=== PATIENT | female | born 1995 | race Caucasian/White ===

== ENCOUNTER 2017-09-13 08:12 | Observation (INO) ==
[2017-09-13 09:33] LABS: Bilirubin,Urine Negative (Negative); Blood,Urine Negative (Negative); Clarity,Urine Cloudy (Clear); Color,Urine Yellow (Yellow); Glucose,Urine (UA) Normal (Normal); Ketones,Urine Negative (Negative); Leukocyte Esterase,Urine Trace (Negative); Nitrite,Urine Negative (Negative); Protein,Urine Negative (Neg-Trace); Specific Gravity,Urine 1.025 (1.010-1.025); Urobilinogen,Urine Normal (Normal)
[2017-09-13 09:35] LABS: Bacteria,Urine Few per hpf (None-Few); Hyaline Casts,Urine None Seen per lpf (None-Few); Squamous Epithelial Cell,Urine Many per lpf (None-Few)
[2017-09-13 09:44] LABS: Amphetamine Screen,Urine Negative ng/mL (Cutoff=1000); Barbiturate Screen,Urine Negative ng/mL (Cutoff=200); Benzodiazepines Screen,Urine Negative ng/mL (Cutoff=200); Cannabinoid Screen,Urine Negative ng/mL (Cutoff = 50); Cocaine Screen,Urine Negative ng/mL (Cutoff= 300); Opiate Screen,Urine Negative ng/mL (Cutoff=300); Phencyclidine Screen,Urine Negative ng/mL (Cutoff=25)
--- NOTE | 2017-09-13 10:19 | OB/GYN Progress Note ---
Date of Encounter: 09/13/17 Time of Encounter: 10:17 - Assessment and Plan (1) 28 weeks gestation of Current Visit: Yes Status: Acute (2) Vaginal discharge during in third trimester Current Visit: Yes Status: Acute Nitrazine negative Pt reports no changes in pressure or discharge since arrival labor precautions given OK to discharge back to office for testing (3) NST (non-stress test) reactive on surveillance Current Visit: Yes Status: Acute Subjective - Subjective Principal diagnosis: Vaginal discharge Interval history: Pt presents from office with c/o pressure and vaginal leaking. She states this is not a new problem but has gotten worse recently. Endorses good FM and denies ctx, vaginal bleeding, REECE, blurry vision, RUQ pain. Objective - Vital Signs Vital Signs: Intake and Output 09/12/17 09/13/17 09/13/17 23:59 07:59 15:59 Other: Weight 133.81 kg Patient Weight 09/13/17 23:59 Weight 133.81 kg - Exam FHR: auscultation normal Auscultation: bilateral: normal Abdomen: Present: normal appearance, soft, gravid Uterus: Present: normal, firm - Labs Labs: Abnormal lab results Urine Clarity Cloudy (Clear) A 09/13/17 08:40 Ur Leukocyte Esterase Trace (Negative) H 09/13/17 08:40 Urine Microscopic RBC 3-5 per hpf (0-3) H 09/13/17 08:40 Urine Microscopic WBC 5-15 per hpf (0-3) H 09/13/17 08:40 Ur Squamous Epith Cells Many per lpf (None-Few) H 09/13/17 08:40
== END 2017-09-13 10:30 | disposition home or self-care (01) ==
LOC: 1NENULAB
PROVIDERS: ADMIT Student in an Organized Health Care Education/Training Program; ATTEND Student in an Organized Health Care Education/Training Program

== ENCOUNTER 2017-09-18 19:16 | Observation (INO) ==
--- NOTE | 2017-09-18 19:36 | OB/GYN Progress Note ---
Date of Encounter: 09/18/17 Time of Encounter: 19:30 - Assessment and Plan (1) 28 weeks gestation of Current Visit: Yes Status: Acute (2) Abdominal pain during in third trimester Current Visit: Yes Status: Acute Admit for observation UA negative GI cocktail for chest discomfort FHT reassuring (3) History of atrial fibrillation Current Visit: Yes Status: Acute Patient reports history of Matt goyal currently not following-up with cardiology Obtain 12 lead EKG Subjective - Subjective Principal diagnosis: epigastric pain Interval history: 22F at 28 weeks and 6 days presents to labor and delivery with complaints of worsening lower abdominal pain for 1 week. PMHx of Matt goyal, not on any medications, and unspecified brain lesion. She describes the abdominal pain as pressure-like, worse with exertion. She experienced two episodes of lower abdominal pain with diaphoresis and shortness of breath today in the morning and at 1500 that lasted 2 minutes each time. The pain did not radiate. Both episodes self-resolved. She reports good movement, denies vaginal bleeding , contractions, or leakage of fluid. She receives care with Dr. Sheldon, last visit 09/13/17. She admits to headaches, vision spotting. She denies dysuria, hematuria, but reports cloudy urine. Ambulating without difficulty, denies lower extremity pain or swelling. has been complicated by morbid obesity. Blood type: B+ Hepatitis B: NR HIV: NR T. Pallidum Ab: negative Rubella IgG: positive Varicella IgG: positive Antepartum ROS: movement normal, no loss of fluid, no vaginal bleeding, no contractions Objective - Exam FHR: auscultation normal, category 1 Auscultation: bilateral: normal Abdomen: Present: normal appearance, soft, gravid Uterus: Present: normal, firm
[2017-09-18 19:43] LABS: Bilirubin,Urine Negative (Negative); Blood,Urine Negative (Negative); Clarity,Urine Cloudy (Clear); Color,Urine Yellow (Yellow); Glucose,Urine (UA) Normal (Normal); Ketones,Urine Negative (Negative); Leukocyte Esterase,Urine Small (Negative); Nitrite,Urine Negative (Negative); Protein,Urine Negative (Neg-Trace); Specific Gravity,Urine 1.024 (1.010-1.025); Urobilinogen,Urine Normal (Normal)
[2017-09-18 19:47] LABS: Bacteria,Urine None Seen per hpf (None-Few); Hyaline Casts,Urine None Seen per lpf (None-Few); RBC,Urine 0-3 per hpf (0-3); Squamous Epithelial Cell,Urine Many per lpf (None-Few)
[2017-09-18 19:50] LABS: Amphetamine Screen,Urine Negative ng/mL (Cutoff=1000); Barbiturate Screen,Urine Negative ng/mL (Cutoff=200); Benzodiazepines Screen,Urine Negative ng/mL (Cutoff=200); Cannabinoid Screen,Urine Negative ng/mL (Cutoff = 50); Cocaine Screen,Urine Negative ng/mL (Cutoff= 300); Opiate Screen,Urine Negative ng/mL (Cutoff=300); Phencyclidine Screen,Urine Negative ng/mL (Cutoff=25)
[2017-09-18] MEDS ORDERED: GI Cocktail 40 ML EACH PO ONE (19:57)
--- NOTE | 2017-09-25 17:03 | Electrocardiograph Report ---
[address] [place], [place] [address] Test Date: 2017-09-18 Pat Name: Pablo Lowe Department: 102 Room: 06 Gender: F Acquisition Lead: Rojas : 1995 Requested By: Alf Delacruz Order Number: [id number] Reading MD: Brittaney Kasper Measurements Intervals Cora Rate: 85 P: 154 WA: 119 QRS: 166 QRSD: 86 T: 178 QT: 344 QTc: 386 Interpretive Statements POSSIBLE ECTOPIC ATRIAL RHYTHM WITH SHORT WA INTERVAL LIMB LEAD REVERSAL Electronically Signed On 09-25-2017 17:01:31 EDT by Brittaney Kasper
== END 2017-09-18 21:35 | disposition home or self-care (01) ==
LOC: 1NENULAB
PROVIDERS: ADMIT Obstetrics & Gynecology; ATTEND Obstetrics & Gynecology

== ENCOUNTER 2017-10-16 12:46 | Observation (INO) ==
[2017-10-16 13:36] VITALS: BP 121/71
[2017-10-16 14:16] LABS: Bilirubin,Urine Negative (Negative); Blood,Urine Negative (Negative); Clarity,Urine Cloudy (Clear); Color,Urine Yellow (Yellow); Glucose,Urine (UA) Normal (Normal); Ketones,Urine Trace mg/dL (Negative); Leukocyte Esterase,Urine Moderate (Negative); Nitrite,Urine Negative (Negative); Protein,Urine Negative (Neg-Trace); Specific Gravity,Urine 1.018 (1.010-1.025); Urobilinogen,Urine Normal (Normal)
[2017-10-16 14:21] LABS: Bacteria,Urine Moderate per hpf (None-Few); Hyaline Casts,Urine Few per lpf (None-Few); Squamous Epithelial Cell,Urine Many per lpf (None-Few); WBC,Urine 15-30 per hpf (0-3)
[2017-10-16 14:50] LABS: RBC,Urine 0-3 per hpf (0-3)
--- NOTE | 2017-10-16 15:00 | Discharge Summary ---
Date of Encounter: 10/16/17 Time of Encounter: 14:59 - Discharge Diagnosis (1) 33 weeks gestation of Priority: Primary Status: Acute Comments: Patient admitted for labor evaluation. Patient declines SVE (2) UTI (urinary tract infection) in in third trimester Priority: Secondary Status: Acute Comments: RX for Macrobid encourage PO hydration - Discharge Medications Prescriptions: Nitrofurantoin (BID) [Macrobid] 100 mg PO BID 7 Days #14 capsule Home Medications: Albuterol Sulfate [Ventolin Hfa] 1 - 2 puff IH Q4H PRN #1 hfa.aer.ad 08/01/15 [ Rx] Montelukast [Singulair] 5 mg PO DAILY 05/03/16 [History] Ferrous Sulfate [Iron] 325 mg PO BID 08/22/17 [History] Ondansetron HCl [Zofran] 4 mg PO PRN PRN 08/22/17 [History] Pnv95/Ferrous Fumarate/FA [ Vitamin Tablet] 1 tab PO DAILY 08/22/17 [ History] Nitrofurantoin (BID) [Macrobid] 100 mg PO BID 7 Days #14 capsule 10/16/17 [Rx] Allergies/Adverse Reactions: 3 Allergy/AdvReac Type Severity Reaction Status Date / Time Amoxicillin [From Augmentin] Allergy See Verified 09/18/17 21:56 Comments clavulanic acid Allergy See Verified 09/18/17 21:56 [From Augmentin] Comments latex Allergy See Verified 09/18/17 21:56 Comments shellfish derived Allergy Swelling Verified 09/18/17 21:56 of Lip/Tongue/Throat NSAIDS (Non-Steroidal AdvReac Nausea Verified 09/18/17 21:56 Anti-Inflamma Data Procedures and tests throughout hospitalization: Laboratory Tests 10/16/17 13:30 Urine Color Yellow Urine Clarity Cloudy A Urine pH 7.0 Ur Specific Danielson 1.018 Urine Protein Negative Urine Glucose (UA) Normal Urine Ketones Trace H Urine Blood Negative Urine Nitrite Negative Urine Bilirubin Negative Urine Urobilinogen Normal Ur Leukocyte Esterase Moderate H Urine Microscopic RBC 0-3 Urine Microscopic WBC 15-30 H Ur Squamous Epith Cells Many H Urine Bacteria Moderate H Hyaline Casts Few Ur Culture Indicated? NO. A Labs on day of discharge: Labs from last 24 hours 10/16/17 13:30 Urine Color Yellow Urine Clarity Cloudy A Urine pH 7.0 Ur Specific Danielson 1.018 Urine Protein Negative Urine Glucose (UA) Normal Urine Ketones Trace H Urine Blood Negative Urine Nitrite Negative Urine Bilirubin Negative Urine Urobilinogen Normal Ur Leukocyte Esterase Moderate H Urine Microscopic RBC 0-3 Urine Microscopic WBC 15-30 H Ur Squamous Epith Cells Many H Urine Bacteria Moderate H Hyaline Casts Few Ur Culture Indicated? NO. A Date of admission: 10/16/17 12:46 Primary care physician: PCP NONE Discharging clinician: Heena Walsh Anticipated date of discharge: 10/16/17 - Patient Status Disposition: Home, Self-Care Condition: Good Functional capacity at discharge: independent ambulation - Discharge Instructions Follow Up With: NONE,PCP [Primary Care Provider] - Jesse Sheldon MD [Partnered Physician] - - Diet and Activity Activity: increase activity as tolerated Diet: regular diet Hospital Course ENVIRONMENTAL SERVICES ATTENDANT Hospital course: Patient is a 22 y/o at 33 weeks gestation presents with lower abdominal pain. Patient reports pain has gotten worse over the past week. Patient denies LOF or VB. Patient is unsure if pain she is feeling is contractions. Patient declines SVE. FHR 130 bpm moderate variability +15x15 accels no decels noted. No contractions. Time Attestation: Total time spent providing and/or coordinating discharge services: Time Spent: Less than 30 minutes Exam - Constitutional Vitals: Temp Pulse Resp BP 98.7 F 97 14 121/71 10/16/17 13:30 10/16/17 13:30 10/16/17 13:30 10/16/17 13:30 General appearance IM: A&O X 3, pleasant, answers questions appropriately - Respiratory Respiratory exam: Present: CTAB - Cardiovascular Cardiovascular exam IM: Present: RRR, +S1, +S2 - Extremities Exam Extremities exam IM: Present: full ROM, normal capillary refill - Neurological Exam Neurological exam: alert, oriented X3, reflexes normal - VTE Reasons for not Prescribing Prophylaxis: Treatment not Indicated - Low risk for VTE
[2017-10-16 16:06] LABS: Amphetamine Screen,Urine Negative ng/mL (Cutoff=1000); Barbiturate Screen,Urine Negative ng/mL (Cutoff=200); Benzodiazepines Screen,Urine Negative ng/mL (Cutoff=200); Cannabinoid Screen,Urine Negative ng/mL (Cutoff = 50); Cocaine Screen,Urine Negative ng/mL (Cutoff= 300); Opiate Screen,Urine Negative ng/mL (Cutoff=300); Phencyclidine Screen,Urine Negative ng/mL (Cutoff=25)
== END 2017-10-16 15:12 | disposition home or self-care (01) ==
LOC: 1NENULAB
PROVIDERS: ADMIT Advanced Practice Midwife; ATTEND Advanced Practice Midwife

== ENCOUNTER 2017-10-18 09:24 | Observation (INO) ==
[2017-10-18 11:32] LABS: Bilirubin,Urine Negative (Negative); Blood,Urine Negative (Negative); Clarity,Urine Clear (Clear); Color,Urine Yellow (Yellow); Glucose,Urine (UA) Normal (Normal); Ketones,Urine Negative (Negative); Leukocyte Esterase,Urine Negative (Negative); Nitrite,Urine Negative (Negative); PH,Urine 6.5 pH Units (5.0-8.0); Protein,Urine Negative (Neg-Trace); Specific Gravity,Urine 1.016 (1.010-1.025); Urobilinogen,Urine Normal (Normal)
[2017-10-18] MEDS ORDERED: Ringers Solution, Lactated 1,000 ML IVC ONE (11:48)
[2017-10-18] MEDS ORDERED: Terbutaline 1 MG/ML VIAL SQ ONE (11:58)
--- NOTE | 2017-10-18 12:08 | OB/GYN Progress Note ---
Date of Encounter: 10/18/17 Time of Encounter: 12:05 - Assessment and Plan (1) 33 weeks gestation of Current Visit: Yes Status: Acute (2) Abdominal pain during in third trimester Current Visit: Yes Status: Acute Terbutaline administered No cervical change Follow-up as scheduled Okay to discharge home (3) NST (non-stress test) reactive on surveillance Current Visit: Yes Status: Acute Subjective - Subjective Interval history: Patient presents with complaints of contractions. movement normal, no loss of fluid no vaginal bleeding. Antepartum ROS: movement normal, contractions, no loss of fluid, no vaginal bleeding Objective - Exam FHR: category 1 FHR comments: Baseline 130 Moderate variability Accelerations present 15x15 No decelerations FHR Category I Auscultation: bilateral: normal Abdomen: Present: normal appearance, soft, gravid Uterus: Present: normal, firm Cervical dilation: 0 Cervix effacement: 0 station: -3
[2017-10-18 12:45] LABS: Amphetamine Screen,Urine Negative ng/mL (Cutoff=1000); Barbiturate Screen,Urine Negative ng/mL (Cutoff=200); Benzodiazepines Screen,Urine Negative ng/mL (Cutoff=200); Cannabinoid Screen,Urine Negative ng/mL (Cutoff = 50); Cocaine Screen,Urine Negative ng/mL (Cutoff= 300); Opiate Screen,Urine Negative ng/mL (Cutoff=300); Phencyclidine Screen,Urine Negative ng/mL (Cutoff=25)
== END 2017-10-18 13:30 | disposition home or self-care (01) ==
LOC: 1NENULAB
PROVIDERS: ADMIT Student in an Organized Health Care Education/Training Program; ATTEND Student in an Organized Health Care Education/Training Program

== ENCOUNTER 2017-11-10 12:37 | Observation (INO) ==
[2017-11-10 13:48] LABS: Basophils % 0.3 %; Eosinophils # 0.2 K/mcL (0.0-0.6); Eosinophils % 1.1 %; Hematocrit 31.2 % (35.3-44.9); Hemoglobin 10.5 g/dL (11.5-15.4); Immature Granulocytes % 0.6 % (0-4); Lymphocytes % 12.8 %; Mean Corpuscular HGB Conc 33.7 g/dL (31.6-35.5); Mean Corpuscular Hemoglobin 29.8 pg (28.0-33.3); Mean Corpuscular Volume 88.6 fL (83.0-100.0); Mean Platelet Volume 12.8 fL (9.4-12.4); Monocytes # 0.8 K/mcL (0.0-1.3); Monocytes % 5.7 %; Neutrophils # 10.8 K/mcL (1.6-8.9); Platelet Count 175 K/mcL (140-400); Red Blood Count 3.52 M/mcL (3.82-4.97); Red Cell Distribution Width 12.2 % (11.5-14.5); Segmented Neutrophils % 79.5 %
[2017-11-10 14:08] LABS: Alanine Aminotransferase 15 Units/L (7-52); Aspartate Amino Transferase 16 Units/L (13-39); BUN/Creatinine Ratio 13 (6-26); Blood Urea Nitrogen 7 mg/dL (6-20); Lactate Dehydrogenase 138 Units/L (140-271); Uric Acid 4.2 mg/dL (2.3-7.6); eGFR For African Americans > 60 (> 60); eGFR For Non-African Americans > 60 (> 60)
[2017-11-10 14:12] LABS: Bilirubin,Urine Negative (Negative); Blood,Urine Negative (Negative); Clarity,Urine Cloudy (Clear); Color,Urine Yellow (Yellow); Glucose,Urine (UA) Normal (Normal); Ketones,Urine Negative (Negative); Leukocyte Esterase,Urine Negative (Negative); Nitrite,Urine Negative (Negative); PH,Urine 6.5 pH Units (5.0-8.0); Protein,Urine Negative (Neg-Trace); Specific Gravity,Urine 1.017 (1.010-1.025); Urobilinogen,Urine Normal (Normal)
[2017-11-10 14:15] LABS: Bacteria,Urine Few per hpf (None-Few); Hyaline Casts,Urine None Seen per lpf (None-Few); Squamous Epithelial Cell,Urine Many per lpf (None-Few)
[2017-11-10 14:15] LABS: Creatinine,Urine 114 mg/dL; Protein/Creatinine Ratio,Urine 0.12 mg/mg (0.00-0.20)
[2017-11-10 14:33] LABS: Lymphocytes # 1.7 K/mcL (0.6-4.6)
--- NOTE | 2017-11-10 14:42 | OB/GYN Progress Note ---
Date of Encounter: 11/10/17 Time of Encounter: 14:37 - Assessment and Plan (1) 36 weeks gestation of Current Visit: Yes Status: Acute 36 weeks 5 days late IUP Reactive NST Normal PIH labs Normal UA Discharge home with labor precautions and kick counts. Patient instructed to go to ER if REECE increases Keep appointment as previously scheduled SaturdayNovember [address] Sheldon and prn (2) Headache Current Visit: Yes Status: Acute Qualifiers: Headache type: unspecified Headache chronicity pattern: chronic headache Intractability: not intractable Qualified Code(s): R51 - Headache Subjective - Subjective Interval history: at 36 weeks and 5 days presents to triage with reports contractions, REECE , "seeing spots" and heartburn. Denies vaginal bleeding and leaking fluid. Denies dysuria. States baby moving well. Patient has history of chronic Atrial fibrillation, brain lesions and headaches. Objective - Vital Signs Vital Signs: Intake and Output 11/09/17 11/10/17 11/10/17 23:59 07:59 15:59 Other: Weight 136.5 kg Patient Weight 11/10/17 23:59 Weight 136.5 kg - Exam FHR: category 1 FHR comments: FHR 140 Auscultation: bilateral: normal Abdomen: Present: soft, gravid. Absent: tenderness Uterus: Present: normal. Absent: tenderness Cervical dilation: closed Cervix effacement: thick station: High Comments: VE per RN - Labs Labs: Abnormal lab results WBC 13.6 K/mcL (4.3-11.1) H 11/10/17 12:46 RBC 3.52 M/mcL (3.82-4.97) L 11/10/17 12:46 Hgb 10.5 g/dL (11.5-15.4) L 11/10/17 12:46 Hct 31.2 % (35.3-44.9) L 11/10/17 12:46 MPV 12.8 fL (9.4-12.4) H 11/10/17 12:46 Neutrophils # 10.8 K/mcL (1.6-8.9) H 11/10/17 12:46 Creatinine 0.54 mg/dL (0.60-1.20) L 11/10/17 12:46 Lactate Dehydrogenase 138 Units/L (140-271) L 11/10/17 12:46 Urine Clarity Cloudy (Clear) A 11/10/17 13:55 Urine Microscopic RBC 3-5 per hpf (0-3) H 11/10/17 13:55 Urine Microscopic WBC 5-15 per hpf (0-3) H 11/10/17 13:55 Ur Squamous Epith Cells Many per lpf (None-Few) H 11/10/17 13:55
[2017-11-10 16:18] LABS: Amphetamine Screen,Urine Negative ng/mL (Cutoff=1000); Barbiturate Screen,Urine Negative ng/mL (Cutoff=200); Benzodiazepines Screen,Urine Negative ng/mL (Cutoff=200); Cannabinoid Screen,Urine Negative ng/mL (Cutoff = 50); Cocaine Screen,Urine Negative ng/mL (Cutoff= 300); Opiate Screen,Urine Negative ng/mL (Cutoff=300); Phencyclidine Screen,Urine Negative ng/mL (Cutoff=25)
== END 2017-11-10 14:30 | disposition home or self-care (01) ==
LOC: 1NENULAB
PROVIDERS: ADMIT Advanced Practice Midwife; ATTEND Advanced Practice Midwife

== ENCOUNTER 2017-11-15 11:26 | Inpatient (IN) ==
[2017-11-15] MEDS ORDERED: Metoclopramide 10 MG/2 ML VIAL IVP PRN (11:39)
[2017-11-15] MEDS ORDERED: Ondansetron 4 MG/2 ML VIAL IVP PRN (11:39)
[2017-11-15] MEDS ORDERED: *HR* Nalbuphine 10 MG/ML AMPUL IVP PRN (11:39)
[2017-11-15] MEDS ORDERED: Famotidine 20 MG/2 ML VIAL IVP PRN (11:39)
[2017-11-15] MEDS ORDERED: Lidocaine 1% 20 ML MDV INFILT PRN (11:39)
[2017-11-15] MEDS ORDERED: Naloxone 0.4 MG/ML INJ IVP PRN (11:39)
[2017-11-15] MEDS ORDERED: Ringers Solution, Lactated 1,000 ML IVC SCH (11:45)
[2017-11-15 12:30] LABS: Basophils % 0.2 %; Eosinophils # 0.1 K/mcL (0.0-0.6); Eosinophils % 0.9 %; Hematocrit 32.4 % (35.3-44.9); Immature Granulocytes % 0.5 % (0-4); Lymphocytes # 1.8 K/mcL (0.6-4.6); Lymphocytes % 15.1 %; Mean Corpuscular Hemoglobin 30.1 pg (28.0-33.3); Mean Corpuscular Volume 88.5 fL (83.0-100.0); Monocytes # 0.7 K/mcL (0.0-1.3); Monocytes % 6.1 %; Neutrophils # 9.1 K/mcL (1.6-8.9); Platelet Count 197 K/mcL (140-400); Red Blood Count 3.66 M/mcL (3.82-4.97); Red Cell Distribution Width 12.5 % (11.5-14.5); Segmented Neutrophils % 77.2 %
[2017-11-15 12:52] LABS: Alanine Aminotransferase 16 Units/L (7-52); Aspartate Amino Transferase 17 Units/L (13-39); BUN/Creatinine Ratio 13 (6-26); Blood Urea Nitrogen 7 mg/dL (6-20); Lactate Dehydrogenase 132 Units/L (140-271); Uric Acid 4.3 mg/dL (2.3-7.6); eGFR For African Americans > 60 (> 60); eGFR For Non-African Americans > 60 (> 60)
[2017-11-15 13:17] LABS: Amphetamine Screen,Urine Negative ng/mL (Cutoff=1000); Barbiturate Screen,Urine Negative ng/mL (Cutoff=200); Benzodiazepines Screen,Urine Negative ng/mL (Cutoff=200); Cannabinoid Screen,Urine Negative ng/mL (Cutoff = 50); Cocaine Screen,Urine Negative ng/mL (Cutoff= 300); Opiate Screen,Urine Negative ng/mL (Cutoff=300); Phencyclidine Screen,Urine Negative ng/mL (Cutoff=25)
[2017-11-15 13:30] LABS: Protein/Creatinine Ratio,Urine 0.11 mg/mg (0.00-0.20)
--- NOTE | 2017-12-04 16:42 | OB/GYN Progress Note ---
Date of Encounter: 11/15/17 Time of Encounter: 11:55 - Assessment and Plan (1) 37 weeks gestation of Status: Mary Shah is a 22 y/o @ 37 +1 weeks who presented to L&D initially for IOL for GHTN but had to be transfered to [facility] because she has a history of A-fib and we do not have telemetry on L&D. Objective - Labs Labs: Abnormal lab results WBC 11.8 K/mcL (4.3-11.1) H 11/15/17 11:40 RBC 3.66 M/mcL (3.82-4.97) L 11/15/17 11:40 Hgb 11.0 g/dL (11.5-15.4) L 11/15/17 11:40 Hct 32.4 % (35.3-44.9) L 11/15/17 11:40 Neutrophils # 9.1 K/mcL (1.6-8.9) H 11/15/17 11:40 Creatinine 0.54 mg/dL (0.60-1.20) L 11/15/17 11:44 Lactate Dehydrogenase 132 Units/L (140-271) L 11/15/17 11:44 Urine Total Protein 17 mg/dL (1-14) H 11/15/17 12:55
== END 2017-11-15 14:10 | disposition short-term general hospital (02) | DRG 566 ==
LOC: 1NENULAB 11:26
PROVIDERS: ADMIT Student in an Organized Health Care Education/Training Program; ATTEND Student in an Organized Health Care Education/Training Program

== ENCOUNTER → 2017-11-17 17:45 | Observation (INO) ==
[2017-11-17 11:59] LABS: Basophils % 0.2 %; Eosinophils # 0.1 K/mcL (0.0-0.6); Eosinophils % 1.1 %; Hematocrit 32.5 % (35.3-44.9); Hemoglobin 10.9 g/dL (11.5-15.4); Immature Granulocytes % 0.4 % (0-4); Lymphocytes # 1.8 K/mcL (0.6-4.6); Lymphocytes % 15.5 %; Mean Corpuscular HGB Conc 33.5 g/dL (31.6-35.5); Mean Corpuscular Hemoglobin 30.2 pg (28.0-33.3); Mean Platelet Volume 12.1 fL (9.4-12.4); Monocytes # 0.8 K/mcL (0.0-1.3); Neutrophils # 8.7 K/mcL (1.6-8.9); Platelet Count 192 K/mcL (140-400); Red Blood Count 3.61 M/mcL (3.82-4.97); Red Cell Distribution Width 12.5 % (11.5-14.5); Segmented Neutrophils % 75.8 %
--- NOTE | 2017-11-17 12:03 | OB/GYN Progress Note ---
Date of Encounter: 11/17/17 Time of Encounter: 12:02 - Assessment and Plan (1) 37 weeks gestation of Current Visit: Yes Status: Acute BP monitoring while in L&D Urine studies (2) Headache Current Visit: Yes Status: Acute Qualifiers: Headache type: unspecified Headache chronicity pattern: acute headache Intractability: not intractable Qualified Code(s): R51 - Headache Subjective - Subjective Principal diagnosis: Dizziness in Interval history: Ms. Lowe is a 22-year-old female who presents today with complaint of elevated blood pressures from home. She reports her home cuff today blood pressure of 130/100 twice in a row. She states she also had a slight headache felt dizzy and had some tunnel vision. She reports she has been seeming water adequately. She endorses good movement and denies contractions, leakage of fluid, vaginal bleeding. Antepartum ROS: new complaints, movement normal, no loss of fluid, no vaginal bleeding, no contractions Objective - Exam FHR: category 1 Auscultation: bilateral: normal Abdomen: Present: normal appearance, soft, gravid Uterus: Present: normal, firm - Labs Labs: Abnormal lab results WBC 11.5 K/mcL (4.3-11.1) H 11/17/17 11:49 RBC 3.61 M/mcL (3.82-4.97) L 11/17/17 11:49 Hgb 10.9 g/dL (11.5-15.4) L 11/17/17 11:49 Hct 32.5 % (35.3-44.9) L 11/17/17 11:49
[2017-11-17 12:10] LABS: Protein/Creatinine Ratio,Urine 0.18 mg/mg (0.00-0.20)
--- NOTE | 2017-11-17 12:50 | OB/GYN History & Physical ---
Date of Encounter: 11/17/17 Time of Encounter: 12:47 Assessment and Plan (1) 37 weeks gestation of Current visit: Yes Status: Acute 22 y/o @ 37 weeks GHTN, h/o afib in 2011 Plan: The last time I saw the patient, she said that she has been cleared by Cardiology to deliver at [facility] but I have not yet received official report. Nursing Staff working on getting records. We will start with Cervidil after we have obtained records to determine if she will deliver here. Monitor BP and treat accordingly with Mg if severe range. History of Present Illness HPI: Ms. Lowe is a 22 year old female @ 37+4 weeks who presents to L&D with elevated BP and dizziness. She had mild range elevation this past Saturday with neg tox eval. She was sent home with BP monitoring instructions. She says that she had mild range pressures at home with her routine checks. She arrived L&D with at least one severe range pressure with evantual normalization. Based on the prior high BP, she qualifies for Gestational HTN and delivery. Dr Pineda agrees as second Provider. No LOF, VB or ctxs, feels good FM. Past Med Surg Social Fam HX - Past Medical History Medical history: asthma, atrial fibrillation, GERD, migraine, syncope, other Psychiatric history: no psych history - Past Surgical History Surgical History: cholecystectomy, orthopedic, other - Social History Smoking Status: Former smoker Smokeless Tobacco Status: No Alcohol use: none Drug use: none - Family History Mother Name: Iva Family Member Ethnicity: Non- Living Status: Still Living Hx Family Cardiac Disorders: Yes (htn) Hx Family Respiratory Disorders: Yes (Ashthma) Hx Family Cancer: No Hx Family GI Disorders: No Hx Family Endocrine Disorder: No Hx Family Neuromuscular Disorders: No Hx Family Neurologic Disorders: No Hx Family HEENT Disorders: No Hx Family Autoimmune Disorders: No Obstetrical History - Pregnancies : 1 Medications and Allergies Albuterol Sulfate [Ventolin Hfa] 1 - 2 puff IH Q4H PRN #1 hfa.aer.ad 08/01/15 [ Rx] Ondansetron HCl [Zofran] 4 mg PO PRN PRN 08/22/17 [History] Pnv95/Ferrous Fumarate/FA [ Vitamin Tablet] 1 tab PO DAILY 08/22/17 [ History] 3 Allergy/AdvReac Type Severity Reaction Status Date / Time Amoxicillin [From Augmentin] Allergy See Verified 09/18/17 21:56 Comments clavulanic acid Allergy See Verified 09/18/17 21:56 [From Augmentin] Comments latex Allergy See Verified 09/18/17 21:56 Comments shellfish derived Allergy Swelling Verified 09/18/17 21:56 of Lip/Tongue/Throat NSAIDS (Non-Steroidal AdvReac Nausea Verified 09/18/17 21:56 Anti-Inflamma Review of System OB All systems PM: reviewed and no additional remarkable complaints except as stated Exam - Constitutional Constitutional: no acute distress - HEENT HEENT: PERRL - Neck Neck exam: full ROM - Lungs Respiratory exam: CTAB - Cardiovascular Cardiovascular exam: RRR - Abdomen Abdomen: Present: gravid - Extremities Extremities exam: normal inspection - Cervix Dilation: 0 Results Result Diagrams: 11/17/17 11:49 Abnormal lab results WBC 11.5 K/mcL (4.3-11.1) H 11/17/17 11:49 RBC 3.61 M/mcL (3.82-4.97) L 11/17/17 11:49 Hgb 10.9 g/dL (11.5-15.4) L 11/17/17 11:49 Hct 32.5 % (35.3-44.9) L 11/17/17 11:49 All other labs normal. - VTE Reasons for not Prescribing Prophylaxis: Treatment not Indicated - Low risk for VTE
[2017-11-17 13:28] LABS: Amphetamine Screen,Urine Negative ng/mL (Cutoff=1000); Barbiturate Screen,Urine Negative ng/mL (Cutoff=200); Benzodiazepines Screen,Urine Negative ng/mL (Cutoff=200); Cannabinoid Screen,Urine Negative ng/mL (Cutoff = 50); Cocaine Screen,Urine Negative ng/mL (Cutoff= 300); Opiate Screen,Urine Negative ng/mL (Cutoff=300); Phencyclidine Screen,Urine Negative ng/mL (Cutoff=25)
[2017-11-17 14:35] LABS: Alanine Aminotransferase 22 Units/L (7-52); Aspartate Amino Transferase 20 Units/L (13-39); BUN/Creatinine Ratio 13 (6-26); Blood Urea Nitrogen 7 mg/dL (6-20); Lactate Dehydrogenase 121 Units/L (140-271); Uric Acid 3.9 mg/dL (2.3-7.6); eGFR For African Americans > 60 (> 60); eGFR For Non-African Americans > 60 (> 60)
[~2017-11-17 17:45] MED LIST: Acetaminophen 325 MG TABLET PO ONE; Famotidine 20 MG/2 ML VIAL IVP PRN; Naloxone 0.4 MG/ML INJ IVP PRN; Ringers Solution, Lactated 1,000 ML IVC ONE; Ringers Solution, Lactated 1,000 ML IVC SCH; Ringers Solution, Lactated 1,000 ML ONE
== END | disposition other institution (70) ==
LOC: 1NENULAB
PROVIDERS: ADMIT Student in an Organized Health Care Education/Training Program; ATTEND Student in an Organized Health Care Education/Training Program

== ENCOUNTER 2022-02-21 16:34 | Observation (INO) ==
[2022-02-21 18:29] LABS: Basophils % 0.2 %; Eosinophils # 0.1 K/mcL (0.0-0.6); Eosinophils % 0.9 %; Hematocrit 38.3 % (35.3-44.9); Hemoglobin 12.4 g/dL (11.5-15.4); Immature Granulocytes % 0.5 % (0-4); Lymphocytes # 1.1 K/mcL (0.6-4.6); Lymphocytes % 13.4 %; Mean Corpuscular HGB Conc 32.4 g/dL (31.6-35.5); Mean Corpuscular Hemoglobin 30.1 pg (28.0-33.3); Mean Platelet Volume 11.5 fL (9.4-12.4); Monocytes # 0.8 K/mcL (0.0-1.3); Monocytes % 10.2 %; Neutrophils # 6.1 K/mcL (1.6-8.9); Platelet Count 147 K/mcL (140-400); Red Blood Count 4.12 M/mcL (3.82-4.97); Red Cell Distribution Width 13.1 % (11.5-14.5); Segmented Neutrophils % 74.8 %; White Blood Count 8.2 K/mcL (4.3-11.1)
[2022-02-21 18:41] LABS: BUN/Creatinine Ratio 10 (6-26); Blood Urea Nitrogen 5 mg/dL (6-20); Calcium 8.8 mg/dL (8.6-10.3); Carbon Dioxide 21 mEq/L (23-29); Chloride 105 mEq/L (98-107); Glucose 73 mg/dL (70-105); Osmolality,Calculated 276 (280-300); Potassium 3.7 mEq/L (3.5-5.1); Sodium 135 mEq/L (136-145); Troponin I < 0.03 ng/mL (< 0.04)
[2022-02-21 19:42] LABS: Bilirubin,Urine Negative (Negative); Blood,Urine Negative (Negative); Clarity,Urine Clear (Clear); Color,Urine Light-Yellow (Yellow); Glucose,Urine (UA) Normal (Normal); Ketones,Urine Negative (Negative); Leukocyte Esterase,Urine Negative (Negative); Nitrite,Urine Negative (Negative); PH,Urine 6.5 pH Units (5.0-8.0); Protein,Urine Negative (Neg-Trace); Specific Gravity,Urine 1.013 (1.010-1.025); Urobilinogen,Urine Normal (Normal)
[2022-02-21] MEDS ORDERED: predniSONE 20 MG TABLET PO ONE (21:41)
[2022-02-21] MEDS ORDERED: Ipratropium/Albuterol Neb 3 ML IH ONE ×2 (21:41→23:02)
[2022-02-21 22:04] LABS: VBG HCO3 21 mEq/L (21-27); VBG PCO2 32 mmHg (41-51); VBG PH 7.42 pH Units (7.32-7.42); VBG PO2 118 mmHg (25-50)
[2022-02-21 22:09] LABS: Basophils % 0.3 %; Eosinophils # 0.1 K/mcL (0.0-0.6); Eosinophils % 0.9 %; Hematocrit 34.6 % (35.3-44.9); Hemoglobin 11.4 g/dL (11.5-15.4); Immature Granulocytes % 0.5 % (0-4); Lymphocytes # 1.3 K/mcL (0.6-4.6); Lymphocytes % 16.6 %; Mean Corpuscular HGB Conc 32.9 g/dL (31.6-35.5); Mean Corpuscular Hemoglobin 30.2 pg (28.0-33.3); Mean Corpuscular Volume 91.8 fL (83.0-100.0); Mean Platelet Volume 11.4 fL (9.4-12.4); Monocytes # 0.7 K/mcL (0.0-1.3); Monocytes % 8.6 %; Neutrophils # 5.7 K/mcL (1.6-8.9); Platelet Count 148 K/mcL (140-400); Red Blood Count 3.77 M/mcL (3.82-4.97); Red Cell Distribution Width 13.2 % (11.5-14.5); Segmented Neutrophils % 73.1 %; White Blood Count 7.8 K/mcL (4.3-11.1)
[2022-02-21 22:24] LABS: INR 1.1; Prothrombin Time 12.1 Seconds (9.4-12.1)
[2022-02-21 22:30] LABS: Alanine Aminotransferase 15 Units/L (7-52); Albumin 3.6 g/dL (3.5-5.7); Alkaline Phosphatase 56 Units/L (34-104); Aspartate Amino Transferase 14 Units/L (13-39); BUN/Creatinine Ratio 9 (6-26); Bilirubin,Indirect 0.2 mg/dL (0.0-1.0); Bilirubin,Total 0.2 mg/dL (0.3-1.0); Blood Urea Nitrogen 4 mg/dL (6-20); Calcium 8.7 mg/dL (8.6-10.3); Carbon Dioxide 20 mEq/L (23-29); Chloride 105 mEq/L (98-107); Glucose 95 mg/dL (70-105); Osmolality,Calculated 275 (280-300); Potassium 3.3 mEq/L (3.5-5.1); Sodium 134 mEq/L (136-145); Total Protein 7.3 g/dL (6.4-8.9)
[2022-02-21 22:31] LABS: Globulin 3.7 g/dL (2.4-3.5); Troponin I < 0.03 ng/mL (< 0.04)
[2022-02-21 22:41] LABS: Influenza A PCR Negative (Negative); Influenza B PCR Negative (Negative); Resp. Syncytial Virus PCR Negative (Negative)
[2022-02-21] MEDS ORDERED: Iopamidol - 370 500 ML MLS IVP ONE (22:41)
[2022-02-21 23:00] LABS: SARS-CoV-2 by PCR (In House) Negative (Negative)
[2022-02-22] MEDS ORDERED: Ipratropium/Albuterol Neb 3 ML ONE ×2 (00:53→09:04)
[2022-02-22] MEDS ORDERED: Ipratropium/Albuterol Neb 3 ML IH ONE (00:55)
[2022-02-22] MEDS: Ipratropium/Albuterol Neb 3 ML IH SCH ×6 (06:07→23:25)
[2022-02-22] MEDS: Ondansetron ODT 4 MG TAB.RAPDIS SL PRN ×2 (08:04→20:14)
[2022-02-22 09:34] LABS: Adenovirus Not Detected (Not Detect); Bordetella Pertussis Not Detected (Not Detect); Chlamydophila pneumoniae Not Detected (Not Detect); Coronavirus 229E Not Detected (Not Detect); Coronavirus HKU1 Not Detected (Not Detect); Coronavirus NL63 Not Detected (Not Detect); Coronavirus OC43 Not Detected (Not Detect); Human Metapneumovirus Not Detected (Not Detect); Human Rhinovirus/Enterovirus DETECTED (Not Detect); Influenza A Subtype 2009 H1 Not Detected (Not Detect); Influenza B Not Detected (Not Detect); Mycoplasma pneumoniae Not Detected (Not Detect); Parainfluenza Virus 1 Not Detected (Not Detect); Parainfluenza Virus 2 Not Detected (Not Detect); Parainfluenza Virus 3 Not Detected (Not Detect); Parainfluenza Virus 4 Not Detected (Not Detect); Respiratory Syncytial Virus Not Detected (Not Detect); SARS-CoV-2 Not Detected (Not Detect)
[2022-02-22] MEDS ORDERED: Saline Nasal Spray 44 ML BOTTLE NS PRN (10:06)
[2022-02-22] MEDS ORDERED: Menthol 1 EACH LOZENGE MM PRN (10:38)
[2022-02-22] MEDS: GuaiFENesin Liq 200 MG/10 ML UDC PO PRN ×2 (11:09→18:28)
[2022-02-23] MEDS: GuaiFENesin Liq 200 MG/10 ML UDC PO PRN (00:35)
[2022-02-23] MEDS: Ipratropium/Albuterol Neb 3 ML IH SCH ×3 (03:40→13:33)
[2022-02-23 04:45] VITALS: O2SAT 92
[2022-02-23] MEDS ORDERED: Acetaminophen 325 MG TABLET PO PRN (04:48)
[2022-02-23 04:53] LABS: Basophils % 0.3 %; Eosinophils # 0.1 K/mcL (0.0-0.6); Eosinophils % 1.1 %; Hematocrit 31.4 % (35.3-44.9); Hemoglobin 10.4 g/dL (11.5-15.4); Immature Granulocytes % 0.4 % (0-4); Lymphocytes % 26.8 %; Mean Corpuscular HGB Conc 33.1 g/dL (31.6-35.5); Mean Corpuscular Hemoglobin 30.7 pg (28.0-33.3); Mean Corpuscular Volume 92.6 fL (83.0-100.0); Mean Platelet Volume 11.2 fL (9.4-12.4); Monocytes # 0.6 K/mcL (0.0-1.3); Neutrophils # 4.8 K/mcL (1.6-8.9); Platelet Count 133 K/mcL (140-400); Red Blood Count 3.39 M/mcL (3.82-4.97); Red Cell Distribution Width 13.2 % (11.5-14.5); Segmented Neutrophils % 63.4 %; White Blood Count 7.5 K/mcL (4.3-11.1)
[2022-02-23] MEDS: Ondansetron ODT 4 MG TAB.RAPDIS SL PRN (08:07)
[2022-02-23 10:55] VITALS: BP 116/86; PULSE 100; TEMP 98.3
== END 2022-02-23 10:10 | disposition home or self-care (01) ==
LOC: EMEROOARM 16:34 → 1NENUOBS 16:34 → 1NENUPED 02-23 00:49
PROVIDERS: ADMIT Obstetrics & Gynecology; ATTEND Obstetrics & Gynecology

== ENCOUNTER 2022-04-17 21:15 | Observation (INO) ==
[2022-04-17] MEDS ORDERED: Ondansetron 4 MG/2 ML VIAL IVP ONE (21:48)
[2022-04-17] MEDS ORDERED: Acetaminophen IV 1,000 MG/100 ML BAG IVPB ONE (21:48)
[2022-04-17] MEDS ORDERED: 0.9 % Sodium Chloride 1,000 ML IVC ONE (21:50)
[2022-04-17] MEDS ORDERED: cefTRIAXone 1,000 MG in 0.9 % Sodium Chloride Mini Bag 100 ML IVPB ONE (21:50)
[2022-04-17 22:07] LABS: Basophils % 0.2 %; Bilirubin,Urine Negative (Negative); Blood,Urine Negative (Negative); Clarity,Urine Clear (Clear); Color,Urine Yellow (Yellow); Eosinophils % 0.2 %; Glucose,Urine (UA) Normal (Normal); Hematocrit 33.7 % (35.3-44.9); Hemoglobin 11.3 g/dL (11.5-15.4); Immature Granulocytes % 0.4 % (0-4); Ketones,Urine >150 mg/dL (Negative); Leukocyte Esterase,Urine Negative (Negative); Lymphocytes # 0.7 K/mcL (0.6-4.6); Lymphocytes % 5.2 %; Mean Corpuscular HGB Conc 33.5 g/dL (31.6-35.5); Mean Corpuscular Hemoglobin 30.1 pg (28.0-33.3); Mean Corpuscular Volume 89.6 fL (83.0-100.0); Mean Platelet Volume 11.5 fL (9.4-12.4); Monocytes # 0.9 K/mcL (0.0-1.3); Monocytes % 6.7 %; Neutrophils # 11.5 K/mcL (1.6-8.9); Nitrite,Urine Negative (Negative); PH,Urine 6.5 pH Units (5.0-8.0); Platelet Count 174 K/mcL (140-400); Protein,Urine Trace mg/dL (Neg-Trace); Red Blood Count 3.76 M/mcL (3.82-4.97); Red Cell Distribution Width 11.9 % (11.5-14.5); Segmented Neutrophils % 87.3 %; Urobilinogen,Urine Normal (Normal); White Blood Count 13.1 K/mcL (4.3-11.1)
[2022-04-17 22:28] LABS: BUN/Creatinine Ratio 10 (6-26); Blood Urea Nitrogen 5 mg/dL (6-20); Carbon Dioxide 19 mEq/L (23-29); Chloride 100 mEq/L (98-107); Glucose 84 mg/dL (70-105); Osmolality,Calculated 266 (280-300); Potassium 3.4 mEq/L (3.5-5.1); Sodium 130 mEq/L (136-145)
[2022-04-17 22:29] LABS: Troponin I < 0.03 ng/mL (< 0.04)
[2022-04-17 22:30] LABS: Influenza A PCR Negative (Negative); Influenza B PCR Negative (Negative); Resp. Syncytial Virus PCR Negative (Negative)
[2022-04-17] MEDS ORDERED: Morphine Sulfate 2 MG/ML SYRINGE IVP ONE (23:09)
[2022-04-17 23:36] LABS: SARS-CoV-2 by PCR (In House) Negative (Negative)
[2022-04-18] MEDS ORDERED: Morphine Sulfate 2 MG/ML SYRINGE IVP ONE (00:52)
[2022-04-18] MEDS ORDERED: 0.9 % Sodium Chloride 1,000 ML IVC ONE (01:33)
[2022-04-18] MEDS ORDERED: Naloxone 0.4 MG/ML INJ IVP PRN (05:24)
[2022-04-18] MEDS ORDERED: Iopamidol - 370 500 ML MLS IVP ONE (05:59)
[2022-04-18] MEDS ORDERED: Acetaminophen 325 MG TABLET PO PRN (06:00)
[2022-04-18 06:11] LABS: Basophils % 0.1 %; Eosinophils % 0.2 %; Hematocrit 30.6 % (35.3-44.9); Hemoglobin 10.1 g/dL (11.5-15.4); Immature Granulocytes % 0.5 % (0-4); Lymphocytes % 11.6 %; Mean Corpuscular Hemoglobin 30.1 pg (28.0-33.3); Mean Corpuscular Volume 91.3 fL (83.0-100.0); Mean Platelet Volume 11.2 fL (9.4-12.4); Monocytes # 0.8 K/mcL (0.0-1.3); Monocytes % 9.2 %; Neutrophils # 6.7 K/mcL (1.6-8.9); Platelet Count 151 K/mcL (140-400); Red Blood Count 3.35 M/mcL (3.82-4.97); Red Cell Distribution Width 11.9 % (11.5-14.5); Segmented Neutrophils % 78.4 %; White Blood Count 8.6 K/mcL (4.3-11.1)
[2022-04-18 06:18] LABS: INR 1.2; Prothrombin Time 13.4 Seconds (9.4-12.1)
[2022-04-18 06:21] LABS: Activated Partial Thrombo Time 27.6 Seconds (26.0-36.0)
[2022-04-18 06:29] LABS: Alanine Aminotransferase 12 Units/L (7-52); Albumin 3.3 g/dL (3.5-5.7); Alkaline Phosphatase 69 Units/L (34-104); Aspartate Amino Transferase 14 Units/L (13-39); BUN/Creatinine Ratio 10 (6-26); Bilirubin,Total 0.3 mg/dL (0.3-1.0); Blood Urea Nitrogen 4 mg/dL (6-20); Calcium 8.3 mg/dL (8.6-10.3); Carbon Dioxide 21 mEq/L (23-29); Chloride 105 mEq/L (98-107); Chol/HDL Ratio 2.7 (0-4.9); Cholesterol 145 mg/dL (< 200); Globulin 3.2 g/dL (2.4-3.5); Glucose 85 mg/dL (70-105); HDL Cholesterol 54 mg/dL (40-59); LDL Cholesterol,Calculated 67 mg/dL (< 100); Magnesium 1.4 mg/dL (1.6-2.6); Osmolality,Calculated 272 (280-300); Phosphorous 3.3 mg/dL (2.7-4.5); Potassium 3.2 mEq/L (3.5-5.1); Sodium 133 mEq/L (136-145); Total Protein 6.5 g/dL (6.4-8.9); Triglycerides 122 mg/dL (< 150)
[2022-04-18] MEDS: Aspirin 81 MG TAB.CHEW PO SCH (08:14)
[2022-04-18] MEDS: Ondansetron ODT 4 MG TAB.RAPDIS SL PRN (19:24)
[2022-04-18 21:26] LABS: Amphetamine Screen,Urine Negative ng/mL (Cutoff=1000); Barbiturate Screen,Urine Negative ng/mL (Cutoff=200); Benzodiazepines Screen,Urine Negative ng/mL (Cutoff=200); Cannabinoid Screen,Urine Negative ng/mL (Cutoff = 50); Cocaine Screen,Urine Negative ng/mL (Cutoff= 300); Opiate Screen,Urine Negative ng/mL (Cutoff=300); Phencyclidine Screen,Urine Negative ng/mL (Cutoff=25)
[2022-04-19] MEDS: Ondansetron ODT 4 MG TAB.RAPDIS SL PRN (05:33)
[2022-04-19] MEDS: Aspirin 81 MG TAB.CHEW PO SCH (09:17)
[2022-04-19 10:38] VITALS: BP 101/54; PULSE 71; TEMP 97.4; O2SAT 99
== END 2022-04-19 14:55 | disposition home or self-care (01) ==
LOC: EMEROOARM 21:15 → 1NENUOBS 21:15 → SUATTDRO 04-18 01:54 → 1NENUOBS 04-18 02:49 → 3BNU 04-18 05:10
PROVIDERS: ADMIT Student in an Organized Health Care Education/Training Program; ATTEND Registered Nurse